=== PATIENT | male | born 1960 | race Caucasian/White ===

== ENCOUNTER 2020-05-06 08:54 | Outpatient (CLI) | payer BC, SELFPAY ==
[2020-05-08 17:37] LABS: COVID-19 RT-PCR Result NEGATIVE (Negative)
== END 2020-05-06 09:14 ==
PROVIDERS: PCP Family Medicine; Visit Provider Surgery
DX: Z01.818 Encounter for other preprocedural examination (principal); Z11.59 Encounter for screening for other viral diseases
CPT/HCPCS: U0003

== ENCOUNTER 2020-05-09 07:52 | Day surgery (SDC) | payer BC, SELFPAY ==
[2020-05-09] VITALS (7 sets, daily range): BP systolic 106–134; BP diastolic 71–87; PULSE 57–76; RESP 13–20; TEMP 36.4–36.7; O2SAT 92–98
[2020-05-09] MEDS: Acetaminophen 500 MG TAB 1000 MG PO (09:07)
[2020-05-09] MEDS: Gabapentin 300 MG CAP PO (09:07)
[2020-05-09] MEDS: Lactated Ringers 1,000 ML 80 ML IV (09:25)
[2020-05-09] MEDS: ceFAZolin 2 GM/50 ML BAG IVPB (11:09)
[2020-05-09] MEDS: Bupivacaine LIPOSOME/PF 133 MG/10 ML VIAL IJ (11:15)
[2020-05-09] MEDS: Bupivacaine 0.5% Pres-Free 30 ML VIAL (11:15)
--- NOTE | 2020-05-09 12:39 | ROE_ITS ---
Date of service: 05/09/20 Time of Service: 12:39 Operative Note Operative Note DATE OF PROCEDURE: 05/09/20 PRE-OP DIAGNOSIS: lg R inguina hernia POST-OP DIAGNOSIS: other (indirect- omentum ) also small hydrocele PROCEDURE: open inguinal hernia repair and hydrocele SURGEON: Zeenat Joe LADLE REPAIRMAN: Courtney Chong ANESTHESIA: GETA and regional ESTIMATED BLOOD LOSS: 10 PATHOLOGY: none sent COMPLICATIONS: None Patient was transported to: PACU Patient's condition: stable Implants: see RN notes INDICATIONS: The pt is here today for surgery regarding symptomatic --- inguinal hernia that has failed outpatient conservative medical management and he is here today for repair. Informed consent was obtained, explaining risks and benefits of the procedure including but not limited to bleeding, infection, pneumonia, blood clots, chronic pain, chronic numbness, damage to testicle resulting in removal, recurrence of hernia, reaction to Mesh necessitating removal, and other unforetold complications, and complications of anesthesia-which were addressed by the ULTIMATE HOOPS SCOREBOARD OPERATOR. The patient is marked in preOp prior to the procedure DESCRIPTION OF PROCEDURE: The pt is then brought to the operative room suite. Anesthesia was administered per the Department of Anesthesia. The patient was prepped and draped in the usual sterile fashion using ChloraPrep scrub solution. Pause for the cause was done. He did receive preop IV antibiotics, and 30 mL of .25% Marcaine w/ epinephrine was used for local anesthetization. A #12 blade was used to make an incision over the external ring. Electrocautery used to provide hemostasis and dissect down to the fascia. The fascia was pretty much obliterated and there was nothing to open. The cord is elevated. The nerve was not identified. There is no cord lipomas. Electro-cautery is used to provide hemostasis. A Krish drain was placed around the cord to assist in mobilization. The cord was explored. There was is Lg hernia sac on the cord. There is no direct hernia pushing through the floor. The hernia sac is dissected off the cord using a combination of blunt dissection and electrocautery. The hernia sac is opened. There is a large amount of omentum that is pushing through. We this is too much contents to attempt to reduce the abdomen. There is closely inspected and a small omentum. There is no bowel. This is excised using ties of electrocautery. Electrocautery is used to provide hemostasis. There are no contents within the hernia sac. The hernia sac is than inverted and returned to the abdominal cavity. A X large size plug is than inserted into the defect through the internal ring, and over sewn to tighten up the ring with 2-0 vicryl. The cord structures are still able to freely move through the ring itself. The patch was then placed onto the floor, and using 2-0 Vicryl, sewn into the pubic tubercle and the shelving portions of the inguinal ligament, in the standard Lichenstein fashion. The tails of the mesh are brought around the cord, sewn together w/ 2-0 Vicryl, and tucked under the external oblique. As I was investigating the cord structures in preparation close it was noted that he did definitely have a small hydrocele, as well. Once we got to the hydrocele sac itself, we then opened and delivered the testis, and drained clear fluid. It was then wrapped around the back and sutured in place with a running suture of 4-0 vicryl in a Lord maneuver. Once this was done, the testis was placed back into the scrotum in the proper orientation The wound was copiously irrigated. There was no bleeding noted. The drain was removed. All structures are returned to normal anatomical position. The nerve is not sewn into the mesh, nor caught up in any sutures. There there is no external oblique to reapproximate. Deep tissue was approximated with 3-0 Vicryl in a running fashion, and skin was approximated with 4-0 Monocryl in a running subcuticular fashion. Skin glue and sterile dressings are applied. The patient tolerated the procedure without complications to recovery in stable condition. ZEENAT JOE,
--- NOTE | 2020-05-09 12:50 | PDOC.DSDIS_ITS ---
Discharge Plan Disposition Patient Disposition: HOME Condition: Good Discharge Details Reason For Visit: Rt inguinal hernia repair Attending Provider: Zeenat Morales Primary Care Provider: Virginia Chiu Home Meds and New Rx's Prescriptions: New oxycodone 5 mg tablet 5 mg PO Q4H PRNQty: 10 RF: 0 ibuprofen 600 mg tablet 600 mg PO Q6H PRN (Reason: pain) Qty: 60 RF: 3 Discharge Instructions Additional Instructions: Dr. Morales HERNIA REPAIR ? POSTOPERATIVE INSTRUCTIONS Patients who have this type of surgery can usually be expected to return to work within two weeks and have minimal amounts of discomfort. ? ACTIVITY: The day of surgery should be spent resting. However, you can be up for short periods of time, I.E., going to the bathroom or kitchen. Avoid lifting or straining. On the day following surgery, you can be up and about as desired. ? LIFTING: Restrict your lifting to no more than five (5) pounds for the first week following surgery. For the second week after surgery, don?t lift more than ten pounds. We will decide when you are done with restrictions and when you can return to work, at your follow-up appointment. ? DIET: There are no dietary restrictions following surgery. However, you may want to start with small amounts of liquids to avoid nausea the day of surgery. ? INCISION CARE: You will notice purple skin glue closing the incision. Do not peel this off- it will wear off on its own. After 24 hours you may shower. The dressing may be replaced for comfort, but is not necessary. An ice bag may be applied to the incision for 72 hours following surgery. ? SIGNS OF INFECTION: It is not unusual to have some black and blue discoloration of the skin around the incision, but also scrotum and penis. It will slowly disappear. If you have any increased redness, drainage, fever (above 100 degrees), please contact your doctor for an examination. ? DISCOMFORT: You may expect to have some mild discomfort at the incision sight. If severe pain develops you should contact your doctor for further instructions. ? URINATION: Patients who have surgery occasionally have problems urinating. If you experience problems and are not able to urinate within 6 hours following your surgery, please call your doctor immediately or go to your nearest Emergency Room for evaluation. ? DRIVING: NO driving for five (5) days after surgery or if you are still taking narcotic pain medication. ? MEDICATIONS: Alternate Tylenol 1000mg by mouth every 8hours and Ibuprofen 600mg every 6hours. Take the Tylenol and ibuprofen continuously for the first 72hrs- not just when you have pain. Use the oxycodone for breakthrough pain. Use ICE! Twenty minutes on, and then off, continuously for the first 72hours. If you are taking narcotic pain medication, follow the instructions on the label and do not drive. Pain medications can make you very constipated. Make sure you are moving your bowels daily. If not, take Miralax, milk of magnesia or magne sium citrate. ? REPORT: Unusual swelling, severe pain, unresolved nausea, signs of infection, or difficulty in urination to your surgeon. Follow up in clinic with Dr. Morales in 1-2 weeks. [phone] Activity:: see above Remove Dressings/Wound Care:: 24 hours Shower/Bathe:: 24 hours Diet:: Normal Diet Discharge Orders Discharge Orders: Discharge Order (Routine); Ordered 05/09/20 Ordered By: Zeenat Morales DS: Diagnosis Discharge Diagnosis (1) Right inguinal hernia: Status: Acute
[2020-05-09] MEDS: oxyCODONE 5 MG TAB PO (14:12)
== END 2020-05-09 15:05 | disposition home or self-care (01) ==
PROVIDERS: PCP Family Medicine; Visit Provider Surgery
PROC: (CPT 49505; principal; 2020-05-09 09:15)
DX: K40.90 Unilateral inguinal hernia, without obstruction or gangrene, not specified as recurrent (principal); N43.2 Other hydrocele; G89.18 Other acute postprocedural pain
CPT/HCPCS: 49505; 55500; 76942; C1781; J0690; J1100; J1885; J2001; J2405

== ENCOUNTER 2020-07-27 07:59 | Emergency (ER) | payer OTHER, SELFPAY ==
[2020-07-27 08:04] VITALS: BP 136/69; PULSE 66; RESP 16; TEMP 36.6; O2SAT 97
--- NOTE | 2020-07-27 08:38 | ED.GENADUL_ITS ---
Discharge Plan Disposition Patient Disposition: HOME Condition: Stable Discharge Details Clinical Impression: Finger laceration, Injury of tendon of finger Primary Care Provider: Virginia Chiu ED Provider: Hallie Iqbal Home Meds and New Rx's Prescriptions: Continued ibuprofen 600 mg tablet 600 mg PO Q6H PRN (Reason: pain) Qty: 60 RF: 3 Discharge Instructions Instructions: Finger Laceration (ED) Additional Instructions: Go directly to [facility] across the street to be evaluated by orthopedist Dr. Seth. He will evaluate you to confirm if have a tendon injury and if this will require surgical repair with him or whether you need referral to a hand surgeon. Referrals: Alpesh Seth MD [ [facility] STAFF PHYSICIAN] - Discharge Data Discharge Date/Time-TO BE ENTERED AT DEPARTURE: 07/27/20 10:09 Discharge Physician: Hallie Iqbal Medical Decision Making 60-year-old male presents with left second finger laceration sustained while cutting sheet rock with a utility knife prior to arrival. Tetanus 2016. 3 cm laceration noted diagonally along dorsal aspect of finger at PIP joint. Patient is able to extend at MCP and DIP joint but not at PIP joint. Suspect an injury at PIP joint. Sensory grossly intact. Normal capillary refill. Case discussed with Dr. Seth. Recommends 2 g Ancef and closed loosely with sutures and will see patient in the office this morning right after discharge from the emergency department with plan for repair tomorrow or Saturday or if requires higher level of care, will refer to hand surgeon. 5 nylon 5-0 sutures placed to close wound. Wound dressed and finger splint applied. Patient discharged to go directly to [facility] across the [place]. Medical Records Medical records reviewed: Yes I reviewed the patient's medical records. HPI General Mode of arrival: ambulatory . Date/Time Provider Initiated Documentation: 07/27/20 08:15 . Limitations to Documentation: no limitations . Information obtained by: patient . HPI Narrative: Patient is a 60-year-old male who presents to the ED with left second finger laceration sustained while cutting sheet rock with a utility knife just prior to arrival. Patient states the knife was not significantly dirty but he was working with it all morning. His last tetanus was 2015. He denies any known foreign bodies. Related Data Home Medications Medication Instructions Recorded Confirmed ibuprofen 600 mg PO Q6H PRN #60 tab 05/09/20 07/27/20 Previous Rx's Medication Instructions Recorded ibuprofen 600 mg PO Q6H PRN #60 tab 05/09/20 Allergies Allergy/AdvReac Type Severity Reaction Status Date / Time No Known Allergies Allergy Verified 07/27/20 10:25 General Stated Complaint: Laceration KIRT: 3 Review of Systems All systems reviewed & are unremarkable except as noted in HPI and below PFSH Medical History (Updated 07/27/20 @ 12:35 by Alpesh Seth MD) History of tinnitus Preop testing Right inguinal hernia Surgical History Colonoscopy - IV Sedation (05/21/16) Dr Karin Babcock, repeat 10 yrs Repair of inguinal hernia left side at age 8 Right side age 18 Family History Mother Acute arthritis Hypertension Father Lung cancer Social History Smoking/Tobacco Use Status: Former Tobacco Use Quit Date: 10/21/78 Alcohol Intake: current Alcohol Intake frequency: 0-2 drinks per day Alcohol type: beer and wine Drug use: Never Substance use type: does not use Current gender identity: male Do you feel safe at home: Yes Do you feel safe in your relationship?: Yes Exam Const General: cooperative, healthy appearing and no acute distress HENMT Head: normal to inspection Mouth: oral mucosae normal Eyes General: appearance normal, both eyes and all related structures Neck Neck: normal visual inspection Resp Effort & Inspection: normal respiratory effort and able to speak in complete sentences Cardio Rate: regular rate Skin General skin exam: no rashes or lesions noted Neuro General: patient alert, patient awake and patient oriented x3 Other: Able to extend at left second finger MCP and DIP joint. Unable to extend at left second finger PIP joint. Radial/ulnar/median nerve sensory function grossly intact left hand. Extrem General: capillary refill normal Hand/finger images: 1. 3cm straight laceration noted over dorsal aspect of finger at PIP joint. Laceration is deep, extending through dermis and subQ tissue. Psych Appearance: grossly normal Affect: normal affect Course Vital Signs Vital signs: Vital Signs Temperature 97.9 F 07/27/20 08:04 Pulse 66 07/27/20 08:04 Respiratory Rate 16 07/27/20 08:04 Blood Pressure 136/69 07/27/20 08:04 Pulse Oximetry 97 07/27/20 08:04 Temperature 97.9 F 07/27/20 08:04 Temperature Source Temporal Artery Scan 07/27/20 08:04 Pulse 66 07/27/20 08:04 Respiratory Rate 16 07/27/20 08:04 Respiratory Effort Non-Labored 07/27/20 08:07 Blood Pressure 136/69 07/27/20 08:04 Blood Pressure Position Sitting 07/27/20 08:04 Pulse Oximetry 97 07/27/20 08:04 Oxygen Delivery Method Room Air 07/27/20 08:04 Oxygen Flow Rate 0 07/27/20 08:04 Pain Level 3 07/27/20 08:04 Procedures Laceration Laceration 1: Site: hand (Second finger) Side (If applicable): left Size (cm): 3 Description: linear Depth: involves tendon Local Anesthetic: Lidocaine 1% Amount of anesthesia used (mL): 5 Pre-repair: wound explored and irrigated extensively Skin layer closed with: nylon Size (cm): 5-0
--- NOTE | 2020-07-27 09:02 | DI.RAD_ITS ---
EXAM: XR FINGER LT INDEX CLINICAL HISTORY: laceration at dorsal PIP joint, unable to extend TECHNIQUE: COMPARISON: No exams were available for comparison FINDINGS: Three views of the index finger were obtained. There is an apparent laceration over the dorsum of th e finger at the level of the PIP joint. There are mild degenerative changes of PIP joint and moderat e degenerative changes of DIP joint. No acute fracture or dislocation seen. IMPRESSION: RADIATION DOSE DELIVERED: Total DLP
[2020-07-27] MEDS: ceFAZolin 2,000 MG in Normal Saline 100 ML 200 MG IVPB (09:12)
[2020-07-27] MEDS: Lidocaine 1% Multi-Dose 50 ML VIAL (09:22)
== END 2020-07-27 10:09 | disposition home or self-care (01) ==
LOC: ER 10:01
PROVIDERS: Emergency Provider Physician Assistant; PCP Family Medicine
DX: S61.211A Laceration without foreign body of left index finger without damage to nail, initial encounter (principal); S56.49 Other injury of extensor muscle, fascia and tendon of other and unspecified finger at forearm level; W26.0XXA Contact with knife, initial encounter
CPT/HCPCS: 12002; 96365; 99281; 73140; J0690

== ENCOUNTER 2020-07-28 12:27 | Day surgery (SDC) | payer OTHER, BC, SELFPAY ==
[2020-07-28 11:39] VITALS: BP 121/78; PULSE 49; RESP 16; TEMP 36.6; O2SAT 99
[2020-07-28] MEDS: Lactated Ringers 1,000 ML 30 ML IV (13:08)
[2020-07-28] MEDS: ceFAZolin 2 GM/50 ML BAG IVPB (14:30)
[2020-07-28] MEDS: Sodium Bicarbonate 50 MEQ/50 ML VIAL (14:54)
--- NOTE | 2020-07-28 16:01 | W.PM.DSUDISC ---
Discharge Plan Disposition Patient Disposition: HOME Condition: Stable Discharge Details Reason For Visit: INDEX FINGER EXTENSOR TENDON REPAIR Attending Provider: Alpesh Seth Primary Care Provider: Virginia Chiu Home Meds and New Rx's Prescriptions: New ibuprofen 800 mg tablet 800 mg PO BID PRN (Reason: pain, moderate) Qty: 20 RF: 0 oxycodone 5 mg tablet 5 - 10 mg PO Q4H PRN (Reason: moderate to severe pain) Qty: 5 RF: 0 Discharge Instructions Additional Instructions: Surgery: Left index finger laceration irrigation, debridement, and extensor tendon repair Activity: Nonweightbearing in finger splint at all times. Only perform gentle range of motion to the fingertip. Do not force flexion or extension of the finger. Prescriptions: Ibuprofen 800 mg take 1 every 12 hours with a meal as needed for moderate pain Oxycodone 5 mg take 1-2 every 4-6 hours as needed for severe pain You may use [id number] Tylenol (acetaminophen) as needed for mild pain. These pain medications may be taken all at once or in different combinations as needed. Also, recommend Colace (docusate) as a stool softener as surgery and pain medicine cause constipation. Dressings: Leave splint and dressing in place until follow-up. Keep clean and dry at all times. Follow-up: 10-[address] Seth Let us know right away if you develop any redness, drainage, fevers, chest pain, or trouble breathing. Do not drink alcohol or drive for at least 24 hours after anesthesia. Please call the office during business hours with any questions or concerns. Referrals: Alpesh Seth MD [ [facility] STAFF PHYSICIAN] - Discharge Orders Discharge Orders: Discharge Order (Routine); Ordered 07/28/20 Ordered By: Alpesh Seth DS: Diagnosis Discharge Diagnosis (1) Finger laceration: Status: Acute (2) Injury of tendon of finger: Status: Acute
--- NOTE | 2020-07-28 16:11 | ROE_ITS ---
Date of service: 07/28/20 Time of Service: 16:01 Operative Note Operative Note DATE OF PROCEDURE: 07/28/20 PRE-OP DIAGNOSIS: Left index finger complex laceration, extensor tendon injury POST-OP DIAGNOSIS: same PROCEDURE: 1. Left index finger wound irrigation and debridement including skin, subcutaneous tissue, bone, cartilage, and PIP joint 2. Left index finger extensor tendon repair SURGEON: Alpesh Seth NUCLEAR MEDICAL TECHNOLOGIST: Lakeshia Erickson ANESTHESIA: local ESTIMATED BLOOD LOSS: 1 PATHOLOGY: none sent TOURNIQUET TIME: 0 COMPLICATIONS: None Patient was transported to: PACU Patient's condition: stable Implants: 3-0 FiberWire, 6-0 nylon Indications: Please see complete medical record for details. Procedure Description: The patient was positioned supine on the operating room table. All bony prominences were well-padded. Preoperative antibiotics were administered. Local anesthesia was induced. The site was prepped and draped in the usual sterile fashion. The correct patient, procedure, and side of the procedure were all verified prior to incision. The emergency department nylon skin sutures were removed. The wound was bluntly spread apart. Early fibrinous debris as well as clot was bluntly irrigated and removed. The wound was debrided using sharp and blunt dissection in a systematic fashion from the skin proceeding deeply through the subcutaneous tissue, proximal and distal tendon edges, PIP joint capsule, and PIP joint itself including removal of a small loose osteochondral fragment. The laceration injury proceeded obliquely from proximal radial to distal ulnar dorsal to the midline over the PIP joint deep through skin, subcu tissue, and the terminal central slip including the dorsal PIP joint capsule with a near complete laceration of the extensor tendon mechanism centrally to the middle phalanx. The collateral bands were identified there was a small laceration less than 10% of the ulnar collateral band. The radial collateral band was intact. The wound all layers were copiously irrigated with 1 L of normal saline. The zone of injury did not progress volar past the collateral bands the digital neurovascular bundles were not dissected. The tendon and dorsal capsule stump was exposed distally in the proximal central slip tendon was exposed and the ends were repaired widely using a combination of horizontal mattress as well as modified Tavarez sutures for total of 4 pairs of core repair sutures and knots. The patient who was awake was asked to demonstrate full flexion at the PIP joint and resisted full extension quite well without any gapping or failure at the repair. An epitendinous 6-0 nylon running repair was performed for best tendon edge approximation. The wound was again irrigated with normal saline prior to closure. Subcutaneous tissue was reapproximated using 3-0 Monocryl in a buried fashion. The skin was closed with 4-0 nylon in horizontal mattress technique. Xeroform was applied over the wound and covered by dry 4 x 4 gauze and AlumaFoam splint extending from the base of the proximal phalanx to the distal end of the middle phalanx molded into full extension on then the digit covered in finger gauze leaving the distal phalanx exposed. The patient tolerated the procedure without complication and was transferred to the recovery room in a stable condition.
== END 2020-07-28 16:20 | disposition home or self-care (01) ==
PROVIDERS: PCP Family Medicine; Visit Provider Student in an Organized Health Care Education/Training Program
PROC: (CPT 26410; principal; 2020-07-28 14:00)
DX: S66.321A Laceration of extensor muscle, fascia and tendon of left index finger at wrist and hand level, initial encounter (principal); S61.211A Laceration without foreign body of left index finger without damage to nail, initial encounter; X58.XXXA Exposure to other specified factors, initial encounter
CPT/HCPCS: 26410; 11044; J0690

== ENCOUNTER 2021-03-08 08:41 | Outpatient (REF) | payer BC, SELFPAY ==
[2021-03-08 13:49] LABS: Calculated LDL 140 mg/dL (<100); Cholesterol 190 mg/dL (<200); Glucose 107 mg/dL (74-106); HDL Cholesterol 32 mg/dL (40-60); Triglyceride 91 mg/dL (<150)
== END 2021-03-08 08:42 | disposition home or self-care (01) ==
LOC: NCHCN 08:41
PROVIDERS: PCP Family Medicine; Visit Provider Family Medicine
DX: Z00.00 Encounter for general adult medical examination without abnormal findings (principal); Z13.1 Encounter for screening for diabetes mellitus; Z13.220 Encounter for screening for lipoid disorders
CPT/HCPCS: 80061; 82947

== ENCOUNTER 2024-10-27 16:56 | Outpatient (REF) | payer OTHER, SELFPAY ==
[2024-10-27 16:59] LABS: ALT 27 U/L (16-63); AST 19 U/L (15-37); Albumin 3.6 g/dL (3.4-5.0); Alkaline Phosphatase 72 U/L (46-116); Anion Gap 8.2 mmol/L (3-11); BUN 23 mg/dL (7-18); CO2 27.8 mmol/L (21.0-32.0); Calculated LDL 136 mg/dL (<100); Chloride 102 mmol/L (98-107); Cholesterol 199 mg/dL (<200); Estimated GFR 83.01 (mL/min/1.73m2); Glucose 108 mg/dL (74-106); HDL Cholesterol 36 mg/dL (40-60); Potassium 4.8 mmol/L (3.5-5.1); Sodium 138 mmol/L (136-145); Total Protein 6.8 g/dL (6.4-8.2); Triglyceride 139 mg/dL (<150)
[2024-10-27 17:09] LABS: Hemoglobin A1C 5.4 % (<5.7)
[2024-10-28 19:25] LABS: PSA, Screening 4.6 ng/mL (<=4.5)
[2024-10-28 19:51] LABS: HIV-1/2 Ag & Ab Screen Negative (Negative)
[2024-10-28 20:11] LABS: Hepatitis C Ab w Rflx HCV PCR Negative (Negative)
== END 2024-10-27 16:57 | disposition home or self-care (01) ==
LOC: NCHCN 16:56
PROVIDERS: PCP Family Medicine; Visit Provider Family Medicine
DX: Z68.30 Body mass index [BMI] 30.0-30.9, adult (principal); Z13.220 Encounter for screening for lipoid disorders; Z11.4 Encounter for screening for human immunodeficiency virus [HIV]; Z12.5 Encounter for screening for malignant neoplasm of prostate; E66.9 Obesity, unspecified
CPT/HCPCS: 80053; 80061; 84153; 86803; 87389; 83036

== ENCOUNTER 2025-01-26 16:29 | Outpatient (REF) | payer OTHER, SELFPAY ==
--- NOTE | 2025-01-26 15:30 | SKI_PTH ---
PATIENT: Edison Hauser LOC: NCN #:[id number] AGE/SX: 64/M ROOM: RE01/26/[address]: Tamar Roth : 1960 BED: DIS: 01/26/2025 SPEC #: [id number] RECD: 01/27/25 12:47 STATUS: JOVANY GOOD #: [id number] SHELLY: 01/26/25 15:[address]: Tamar Roth DEPT: Surgical Specimen RECD BY: Laura Issa Tissues: 1 - SKIN BIOPSY(SHAVE/PUNCH) Procedures: IMMUNOPEROXIDASE STAIN SKIN LEVEL 4 Comments: [id number]
[2025-01-27 18:33] LABS: PSA, Diagnostic 3.5 ng/mL (<=4.5)
== END 2025-01-26 16:30 | disposition home or self-care (01) ==
LOC: NCHCN 16:29
PROVIDERS: PCP Family Medicine; Visit Provider Family Medicine
DX: R97.20 Elevated prostate specific antigen [PSA] (principal)
CPT/HCPCS: 84153; 88305; 88361